=== PATIENT | female | born 1965 | race Caucasian/White ===

== ENCOUNTER 2019-03-02 12:10 | Outpatient (CLI) | payer MEDICAID ==
--- NOTE | 2019-03-04 03:56 | XRAY Report ---
Reason: ACUTE PAIN OF RIGHT SHOULDER Procedure Date: 03/02/2019 Accession Number: [id number] / [id number] Procedure: XR - Cervical Spine 2 View CPT Code: FULL RESULT: EXAM: CERVICAL SPINE RADIOGRAPHY EXAM DATE: 03/02/2019 12:28 PM. CLINICAL HISTORY: ACUTE PAIN OF RIGHT SHOULDER. COMPARISONS: None. TECHNIQUE: 3 views. FINDINGS: Alignment: Unremarkable. Bones: The cervical vertebral bodies and posterior elements are visualized from the skull base through C7-T1. No fractures or bone lesions. Disks: Degenerative disk disease at all levels. Facets: Degenerative joint disease at multiple levels. Soft Tissues: No prevertebral soft tissue swelling. The visualized lung apices appear clear. IMPRESSION: 1. Multilevel degenerative disk disease and degenerative joint disease. 2. No acute abnormality seen. RADIA
== END 2019-03-02 12:11 | disposition home or self-care (01) ==
LOC: DI 12:10
PROVIDERS: ATTEND Family Medicine
DX: M50.31 Other cervical disc degeneration, high cervical region (principal); M47.812 Spondylosis without myelopathy or radiculopathy, cervical region
CPT/HCPCS: 72040

== ENCOUNTER 2020-08-16 13:29 | Emergency (ER) | payer MEDICAID, OTHER ==
[2020-08-16 13:39] VITALS: BP 118/73
--- NOTE | 2020-08-16 14:38 | ED Physician Documentation ---
PD HPI SKIN - Stated complaint Stated Complaint: HIVES - Chief complaint Chief Complaint: Allergic Rx - History obtained from History obtained from: Patient - History of Present Illness Timing - onset: Last night Timing - duration: Hours Timing - details: Gradual onset, Still present Location: Bodywide Quality / character: Itchy, Burning, Raised, Swelling. No: Vesicular, Crusted, Draining Improved by: Other (clariton) Associated symptoms: No: Fever, Myalgias, Joint pain, Headache, Facial swelling, Dyspnea, Abd pain, N/V/D, Urinary sx Contributing factors: Exposed to food (ate a pizza from [employer] with unfamiliar ingredients.), Other (new dryer sheets X 2 wks.) Similar symptoms before: Has not had sx before Recently seen: Not recently seen - Additional information Additional information: Previously well 54-year-old female with a prior history of traumatic brain injury has developed hives last night and she is uncertain where these came from she has never had this happen to her previously and she knows they are all over her body there uncomfortable itching and burning and migraine. She does not find any area of her body that is spared with the exception of her face and this is only around her mouth and lips. She denies any difficulty breathing swelling of her tongue or recent illness. She has 2 things that she is concerned may have been the precipitant of this. She did have a pizza from [employer] last night with unfamiliar ingredients and she has replaced her dryer sheets with a new brand 2 weeks ago. She is not wearing any clothing that was not dried with the dryer sheets. She does not have any areas that appear spared. Review of Systems Constitutional: reports: Sweats. denies: Fever, Chills, Myalgias Eyes: denies: Decreased vision Ears: denies: Ear pain Nose: denies: Congestion Throat: denies: Sore throat Cardiac: denies: Chest pain / pressure, Palpitations Respiratory: denies: Dyspnea, Cough GI: denies: Abdominal Pain, Nausea, Vomiting : denies: Dysuria, Frequency Skin: reports: Rash Musculoskeletal: denies: Neck pain, Back pain, Extremity pain Neurologic: denies: Generalized weakness, Focal weakness, Numbness PD PAST MEDICAL HISTORY - Past Medical History Past Medical History: Yes Cardiovascular: Hypertension Endocrine/Autoimmune: Type 2 diabetes - Past Surgical History Past Surgical History: Yes Ortho: Carpal Tunnel surgery - Present Medications Home Medications: Ambulatory Orders Medication Instructions Recorded Confirmed Ibuprofen [Motrin] 400 mg PO Q6H PRN #30 tablet 09/01/15 Lidocaine Patch 5% [Lidoderm Patch] 1 each TOP DAILY PRN #10 patch 09/01/15 Oxycodone HCl/Acetaminophen 1 each PO QPM #10 tablet 09/01/15 [Percocet 5-325 mg Tablet] PARoxetine HCl [Paxil] 09/01/15 lisinopriL [Lisinopril] 09/01/15 metFORMIN [Glucophage] 09/01/15 predniSONE [Deltasone] 40 mg PO DAILY 5 Days #10 tablet 08/16/20 - Allergies Allergies/Adverse Reactions: Allergies Allergy/AdvReac Type Severity Reaction Status Date / Time Penicillins Allergy Unknown Verified 08/16/20 13:34 - Social History Does the pt smoke?: No Smoking Status: Never smoker Does the pt drink ETOH?: No Does the pt have substance abuse?: No - Immunizations Immunizations are current?: Yes - POLST Patient has POLST: No PD ED PE NORMAL - Vitals Vital signs reviewed: Yes (normal ) - General General: Alert and oriented X 3, Well developed/nourished, Other (The patient appears uncomfortable figgity) - HEENT HEENT: Atraumatic, PERRL, EOMI, Moist mucous membranes, Pharynx benign - Neck Neck: Supple, no meningeal sign, No bony TTP - Cardiac Cardiac: RRR, No murmur - Respiratory Respiratory: No respiratory distress, Clear bilaterally - Abdomen Abdomen: Soft, Non tender - Back Back: No CVA TTP, No spinal TTP - Derm Derm: Normal color, Warm and dry, Other (There are urticaria body wide some areas grossly affected some areas not so affected) - Extremities Extremities: No deformity, No edema - Neuro Neuro: Alert and oriented X 3, manager r d 2-12 intact, No motor deficit, No sensory deficit, Normal speech Eye Opening: Spontaneous Motor: Obeys Commands Verbal: Oriented GCS Score: 15 - Psych Psych: Normal mood, Normal affect Results - Vitals Vitals: Vital Signs - 24 hr 08/16/20 13:35 Temperature 36.5 C Heart Rate 83 Respiratory 16 Rate Blood Pressure 118/73 O2 Saturation 96 Oxygen O2 Source Room air PD MEDICAL DECISION MAKING - ED course Complexity details: considered differential, d/w patient ED course: 54-year-old female with acute urticaria is uncertain of the specific precipitant. She is administered dexamethasone 10 mg orally we will place her on a short course of prednisone and I have asked her to take Benadryl 25 to 50 mg every 6 hours for the next 2 days. Departure - Departure Disposition: 01 Home, Self Care Clinical Impression: Urticaria Condition: Stable Instructions: ED Urticaria Follow-Up: JENNIFER HSIEH [Primary Care Provider] - Prescriptions: predniSONE [Deltasone] 40 mg PO DAILY 5 Days #10 tablet
[2020-08-16] MEDS ORDERED: DEXAMETHASONE 10 MG/ML VIAL PO STA (14:40)
[2020-08-16] MEDS ORDERED: CHERRY SYRUP 10 ML UDC PO ONE (14:40)
== END 2020-08-16 14:52 | disposition home or self-care (01) ==
LOC: ED 13:29
DX: L50.9 Urticaria, unspecified (principal); I10 Essential (primary) hypertension; E11.9 Type 2 diabetes mellitus without complications; Z79.84 Long term (current) use of oral hypoglycemic drugs; Z87.820 Personal history of traumatic brain injury
CPT/HCPCS: 99282; 99284; A9270

== ENCOUNTER 2020-10-14 12:13 | Emergency (ER) | payer OTHER ==
[2020-10-14 12:31] VITALS: BP 118/75
--- NOTE | 2020-10-14 13:55 | ED Physician Documentation ---
History of Present Illness - Stated complaint Stated Complaint: R LEG SWELLING/PX - Chief complaint Chief Complaint: Ext Problem - History obtained from History obtained from: Patient - History of Present Illness Pain level max: 7 Pain level now: 3 - Additonal information Additional information: Patient is a 54-year-old female who states that for the past several days she has been having pain in the right knee, right calf and right anterior tibia. Worse with palpation and walking. Better with rest. Denies any injury. She states her leg is been swelling as well. No recent surgeries. Not on hormone replacement. No history of blood clots. No recent travel. No numbness or tingling. No skin changes. No fevers. No chills. Review of Systems Ten Systems: 10 systems reviewed and negative Constitutional: denies: Fever, Chills Ears: denies: Ear pain Nose: denies: Rhinorrhea / runny nose, Congestion GI: denies: Vomiting, Diarrhea Skin: denies: Rash Musculoskeletal: denies: Neck pain, Back pain Neurologic: denies: Headache PD PAST MEDICAL HISTORY - Past Medical History Cardiovascular: Hypertension Endocrine/Autoimmune: Type 2 diabetes - Past Surgical History Past Surgical History: Yes Ortho: Carpal Tunnel surgery - Present Medications Home Medications: Ambulatory Orders Medication Instructions Recorded Confirmed Ibuprofen [Motrin] 400 mg PO Q6H PRN #30 tablet 09/01/15 Lidocaine Patch 5% [Lidoderm Patch] 1 each TOP DAILY PRN #10 patch 09/01/15 Oxycodone HCl/Acetaminophen 1 each PO QPM #10 tablet 09/01/15 [Percocet 5-325 mg Tablet] PARoxetine HCl [Paxil] 09/01/15 lisinopriL [Lisinopril] 09/01/15 metFORMIN [Glucophage] 09/01/15 predniSONE [Deltasone] 40 mg PO DAILY 5 Days #10 tablet 08/16/20 HYDROcod/ACETAM 5/325 [[place] 5/325] 1 - 2 ea PO Q6H PRN #14 tablet 10/14/20 - Allergies Allergies/Adverse Reactions: Allergies Allergy/AdvReac Type Severity Reaction Status Date / Time Penicillins Allergy Unknown Verified 10/14/20 12:31 - Social History Does the pt smoke?: No Smoking Status: Never smoker Does the pt drink ETOH?: No Does the pt have substance abuse?: No - Immunizations Immunizations are current?: Yes - POLST Patient has POLST: No PD ED PE NORMAL - Vitals Vital signs reviewed: Yes - General General: Alert and oriented X 3, No acute distress, Well developed/nourished - HEENT HEENT: PERRL, Moist mucous membranes - Neck Neck: Supple, no meningeal sign - Cardiac Cardiac: RRR, Strong equal pulses - Respiratory Respiratory: No respiratory distress, Clear bilaterally - Derm Derm: Warm and dry - Extremities Extremities: Other (Trace edema to the right lower extremity. Tenderness along the posterior calf. There is also tenderness on the medial aspect of the tibial plateau. No joint effusion. ACL, MCL PCL, LCL are intact. She is also mildly tender over the anterior tibial spine. No deformity. Neurovascularly intact) - Neuro Neuro: Alert and oriented X 3 - Psych Psych: Normal mood, Normal affect Results - Vitals Vitals: Vital Signs - 24 hr 10/14/20 12:26 Temperature 36.8 C Heart Rate 73 Respiratory 16 Rate Blood Pressure 118/75 O2 Saturation 97 Oxygen O2 Source Room air - Rads (name of study) R knee xray Radiology: Prelim report reviewed, EMP read contemporaneously, See rad report Duplex US RLE Radiology: Prelim report reviewed, EMP read contemporaneously, See rad report R tib fib xray Radiology: Prelim report reviewed, EMP read contemporaneously, See rad report PD MEDICAL DECISION MAKING - ED course Complexity details: reviewed results, re-evaluated patient, considered differential, d/w patient ED course: 54-year-old female with right knee and right leg pain. Possible meniscus injury? She is tender along the medial tibial plateau. Does have some fluid in the proximal and medial right calf. We will prescribe pain medications for home and have her follow-up with orthopedics for repeat evaluation and further care. No skin changes. No evidence of necrotizing fasciitis or other infection. Patient counseled regarding signs and symptoms for which I believe and urgent re-evaluation would be necessary. Patient with good understanding of and agreement to plan and is comfortable going home at this time This document was made in part using voice recognition software. While efforts are made to proofread this document, sound alike and grammatical errors may occur. R knee/tib fib: IMPRESSION: Right knee osteoarthritis. No acute fracture. No osseous lesion. If symptoms and/or clinical suspicion for pathology continue, further assessment with repeat plain films, or advanced imaging (e.g., CT, MRI, or bone scan) is recommended for further assessment. Small knee joint effusion. Duplex US: IMPRESSION: No sonographic evidence of DVT. Partially visualized nonspecific fluid collection is present present in the proximal and medial right calf measuring up to 7.1 cm. This may represent hematoma or seroma, among other less likely etiologies. Departure - Departure Disposition: 01 Home, Self Care Clinical Impression: Knee pain Qualifiers: Chronicity: acute Laterality: right Qualified Code(s): M25.561 - Pain in right knee Leg pain Qualifiers: Laterality: right Qualified Code(s): M79.604 - Pain in right leg Condition: Good Instructions: ED Meniscal Injury Knee Poss Follow-Up: JENNIFER HSIEH [Primary Care Provider] - [facility] [Provider Group] - Within 1 week Prescriptions: HYDROcod/ACETAM 5/325 [[place] 5/325] 1 - 2 ea PO Q6H PRN #14 tablet PRN Reason: Pain Comments: The cause of your symptoms is unclear today. Please follow-up with orthopedics for further care. Return if you worsen. Continue to use your cane to help you walk at home. The cane should go in your left hand to help take pressure off of the right knee. Do not drink alcohol or drive while on narcotic pain medicine. Note that many narcotic pain relievers also contain tylenol/acetaminophen. Please ensure that your total dose of acetaminophen from all sources does not exceed 3 grams (3000mg) per day. You may constipated on this medication, take a stool softener such as "Colace" twice a day while you are on it. Also recommend a gfxv-lql-lyhudjj laxative such as senna or MiraLAX any day that you do not have a bowel movement. If you received narcotic pain medication in the emergency department, do not drive or operate machinery for the next 24 hours. Discharge Date/Time: 10/14/20 16:32
--- NOTE | 2020-10-14 14:38 | XRAY Report ---
PROCEDURE: Knee 4 View RT INDICATIONS: R knee pain, no known injury TECHNIQUE: 4 views of the right leg and knee(s) were acquired. COMPARISON: None. FINDINGS: Bones: No fractures or dislocations. No suspicious bony lesions. Mild periarticular osteophyte for mation at the right knee joint. Soft tissues: Small right knee joint effusion. No suspicious soft tissue calcifications. IMPRESSION: Right knee osteoarthritis. No acute fracture. No osseous lesion. If symptoms and/or clin ical suspicion for pathology continue, further assessment with repeat plain films, or advanced imagin g (e.g., CT, MRI, or bone scan) is recommended for further assessment. Small knee joint effusion. Reviewed by: Janneth Luna MD on 10/14/2020 2:36 PM PDT Approved by: Janneth Luna MD on 10/14/2020 2:36 PM PDT Station ID: [id number]
--- NOTE | 2020-10-14 14:43 | Ultrasound Report ---
PROCEDURE: Duplex Ext Veins Right INDICATIONS: R LE swelling, calf pain TECHNIQUE: Real-time imaging, as well as color and pulse Doppler interrogation, were performed of the lower extr emity deep veins from the inguinal ligament to the popliteal fossa. COMPARISON: None. FINDINGS: The deep veins are normally compressible, and free of intraluminal thrombus. Color and pu lse Doppler demonstrate normal phasic intraluminal flow. There is normal augmentation response to di stal compression maneuver. Partially visualized nonspecific fluid collection in the proximal and med ial right calf measuring 7.1 x 2.4 x 2.2 cm. IMPRESSION: No sonographic evidence of DVT. Partially visualized nonspecific fluid collection is pre sent present in the proximal and medial right calf measuring up to 7.1 cm. This may represent hematom a or seroma, among other less likely etiologies. Reviewed by: Wong Grider MD on 10/14/2020 2:41 PM PDT Approved by: Wong Grider MD on 10/14/2020 2:41 PM PDT Station ID: [id number]
== END 2020-10-14 16:32 | disposition home or self-care (01) ==
LOC: ED 12:13
DX: M25.561 Pain in right knee (principal); M17.11 Unilateral primary osteoarthritis, right knee; M79.661 Pain in right lower leg; R60.0 Localized edema; I10 Essential (primary) hypertension; E11.9 Type 2 diabetes mellitus without complications; Z79.84 Long term (current) use of oral hypoglycemic drugs
CPT/HCPCS: 99284

== ENCOUNTER 2021-01-13 15:34 | Emergency (ER) | payer MEDICAID, OTHER ==
[2021-01-13] MEDS ORDERED: predniSONE 20 MG TABLET PO STA (16:09)
--- NOTE | 2021-01-13 16:11 | ED Physician Documentation ---
History of Present Illness - Stated complaint Stated Complaint: BUG BITE/PX - Chief complaint Chief Complaint: Allergic Rx - Additonal information Additional information: 55-year-old female presents emergency department for evaluation of a bee sting on her right medial thigh. Had one about 1 week ago. 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 Patient states that she removed the stinger from the team today but is here because of increasing pain. Review of Systems Constitutional: denies: Fever, Chills Eyes: reports: Reviewed and negative Ears: reports: Reviewed and negative Throat: reports: Reviewed and negative Cardiac: denies: Chest pain / pressure, Palpitations, Pedal edema, Calf pain Respiratory: denies: Dyspnea GI: reports: Reviewed and negative : reports: Reviewed and negative Skin: reports: Reviewed and negative PD PAST MEDICAL HISTORY - Past Medical History Cardiovascular: Hypertension Endocrine/Autoimmune: Type 2 diabetes - Past Surgical History Past Surgical History: Yes Ortho: Carpal Tunnel surgery - Present Medications Home Medications: Ambulatory Orders Medication Instructions Recorded Confirmed Ibuprofen [Motrin] 400 mg PO Q6H PRN #30 tablet 09/01/15 Lidocaine Patch 5% [Lidoderm Patch] 1 each TOP DAILY PRN #10 patch 09/01/15 Oxycodone HCl/Acetaminophen 1 each PO QPM #10 tablet 09/01/15 [Percocet 5-325 mg Tablet] PARoxetine HCl [Paxil] 09/01/15 lisinopriL [Lisinopril] 09/01/15 metFORMIN [Glucophage] 09/01/15 predniSONE [Deltasone] 40 mg PO DAILY 5 Days #10 tablet 08/16/20 HYDROcod/ACETAM 5/325 [[place] 5/325] 1 - 2 ea PO Q6H PRN #14 tablet 10/14/20 predniSONE [Deltasone] 40 mg PO DAILY 3 Days #6 tablet 01/13/21 - Allergies Allergies/Adverse Reactions: Allergies Allergy/AdvReac Type Severity Reaction Status Date / Time bee venom protein (honey bee) Allergy Hives Verified 01/13/21 15:39 Penicillins Allergy Unknown Verified 01/13/21 15:38 shellfish derived Allergy Edema Verified 01/13/21 15:42 - Social History Does the pt smoke?: No Smoking Status: Never smoker Does the pt drink ETOH?: No Does the pt have substance abuse?: No - Immunizations Immunizations are current?: Yes - POLST Patient has POLST: No PD ED PE EXPANDED - General General: Alert, No acute distress, Well developed/nourished - Cardiac Cardiac: Regular Rate, Radial strong equal, Pedal strong equal, Cap refill < 2 sec - Respiratory Respiratory: Clear to ausultation jennifer. No: Distress, Labored - Abdomen Abdomen: Normal Bowel sounds. No: Tender to palpation - Back Back: Normal exam - Derm Derm: Normal color, Warm and dry, Other (Bee sting right medial thigh with some mild amount of surrounding erythema but no induration. Blanchable.). No: Rash - Extremities Extremities: Normal. No: Deformity, Tenderness - Neuro Neuro: Alert and Oriented X 3, CNII-XII intact Results - Vitals Vitals: Vital Signs - 24 hr 01/13/21 01/13/21 15:39 16:08 Temperature 37.1 C Heart Rate 84 Respiratory 20 18 Rate Blood Pressure 129/82 H O2 Saturation 97 Oxygen O2 Source Room air PD MEDICAL DECISION MAKING - ED course Complexity details: considered differential, d/w patient ED course: 55-year-old female presents emergency department for evaluation of the staying in the right medial thigh occurred just prior to arrival. Reported had similar in the same area 1 week ago. She does report history of anaphylaxis but did not use her EpiPen. At present she has no chest pain or shortness of air no tongue or lip swelling. She is here mostly because the sting hurts. Patient will be given dose of Pepcid, Benadryl and prednisone. Will be discharged with a 3-day course of prednisone. Discussed the usual indications and use of epinephrine at home though none is administered or indicated at the time of this ED visit. Emergent return precautions discussed. Departure - Departure Disposition: 01 Home, Self Care Clinical Impression: Bee sting reaction Qualifiers: Encounter type: initial encounter Injury intent: accidental or unintentional Qualified Code(s): T63.441A - Toxic effect of venom of bees, accidental (unintentional), initial encounter Condition: Stable Record reviewed to determine appropriate education?: Yes Instructions: ED Sting Bite Insect Infec Follow-Up: JENNIFER HSIEH [Primary Care Provider] - Prescriptions: predniSONE [Deltasone] 40 mg PO DAILY 3 Days #6 tablet Comments: Alona the redness that you have around your bee sting is very typical of a bee envenomation. I recommend a cool compress over it for 10 minutes 3 times a day. Please fill the prescription for the prednisone and take daily starting tomorrow. Your first dose was given today in the ER. I also recommend that you take 25 mg of Benadryl 2-3 times a day. If at any point you feel that you are having a systemic reaction to your bee sting such as chest pain, shortness of air tongue or lip swelling then please use your epinephrine pen at home.
[2021-01-13 16:27] VITALS: BP 131/89
== END 2021-01-13 16:26 | disposition home or self-care (01) ==
LOC: ED 15:34
DX: T63.441A Toxic effect of venom of bees, accidental (unintentional), initial encounter (principal); M79.651 Pain in right thigh; E11.9 Type 2 diabetes mellitus without complications; Z79.84 Long term (current) use of oral hypoglycemic drugs; I10 Essential (primary) hypertension
CPT/HCPCS: 99282; 99283; J7512

== ENCOUNTER 2021-02-13 12:12 | Emergency (ER) | payer MEDICAID ==
[2021-02-13 12:19] VITALS: BP 140/84
--- NOTE | 2021-02-13 13:19 | ED Physician Documentation ---
History of Present Illness - Stated complaint Stated Complaint: MOUTH PX - Chief complaint Chief Complaint: Heent - Additonal information Additional information: 55-year-old female presents emergency department for evaluation of pain in her l eft upper jaw at the site of the recent dental extraction that occurred 3 days ago. She reports that the tooth was grossly infected but has not been started on antibiotics. Since tooth removal she has had progressive pain and some mild facial swelling. She reports fever of 101 yesterday evening. She was unable to see the dentist in follow-up thus she presents here. She is taken ibuprofen with minimal relief of pain. She is also gargling with warm salt water. She has no trismus, dysphonia or difficulty swallowing. Review of Systems Constitutional: reports: Fever Eyes: reports: Reviewed and negative Ears: reports: Reviewed and negative Nose: reports: Reviewed and negative Throat: reports: Dental pain / toothache Cardiac: reports: Reviewed and negative Respiratory: reports: Reviewed and negative GI: reports: Reviewed and negative : reports: Reviewed and negative Skin: reports: Reviewed and negative PD PAST MEDICAL HISTORY - Past Medical History Cardiovascular: Hypertension Endocrine/Autoimmune: Type 2 diabetes - Past Surgical History Past Surgical History: Yes Ortho: Carpal Tunnel surgery - Present Medications Home Medications: Ambulatory Orders Medication Instructions Recorded Confirmed Ibuprofen [Motrin] 400 mg PO Q6H PRN #30 tablet 09/01/15 Lidocaine Patch 5% [Lidoderm Patch] 1 each TOP DAILY PRN #10 patch 09/01/15 Oxycodone HCl/Acetaminophen 1 each PO QPM #10 tablet 09/01/15 [Percocet 5-325 mg Tablet] PARoxetine HCl [Paxil] 09/01/15 lisinopriL [Lisinopril] 09/01/15 metFORMIN [Glucophage] 09/01/15 predniSONE [Deltasone] 40 mg PO DAILY 5 Days #10 tablet 08/16/20 HYDROcod/ACETAM 5/325 [[place] 5/325] 1 - 2 ea PO Q6H PRN #14 tablet 10/14/20 predniSONE [Deltasone] 40 mg PO DAILY 3 Days #6 tablet 01/13/21 Clindamycin [Cleocin] 300 mg PO TID 7 Days #42 cap 02/13/21 - Allergies Allergies/Adverse Reactions: Allergies Allergy/AdvReac Type Severity Reaction Status Date / Time bee venom protein (honey bee) Allergy Hives Verified 02/13/21 12:16 Penicillins Allergy Unknown Verified 02/13/21 12:16 shellfish derived Allergy Edema Verified 02/13/21 12:16 - Social History Does the pt smoke?: No Smoking Status: Never smoker Does the pt drink ETOH?: No Does the pt have substance abuse?: No - Immunizations Immunizations are current?: Yes - POLST Patient has POLST: No PD ED PE EXPANDED - General General: Alert, No acute distress - HEENT HEENT: No: Dentition normal (Extraction site for tooth #14 is mildly erythematous without drainage. Patient has some mild facial swelling and erythema of the left cheek. No trismus. Normal phonation. Uvula is midline with no soft palate asymmetry or swelling.) - Neck Neck: Supple w/out meningeal sx. No: Adenopathy - Cardiac Cardiac: Regular Rate, Radial strong equal, Pedal strong equal, Cap refill < 2 sec - Respiratory Respiratory: Clear to ausultation jennifer. No: Distress, Labored Results - Vitals Vitals: Vital Signs - 24 hr 02/13/21 12:16 Temperature 36.5 C Heart Rate 86 Respiratory 16 Rate Blood Pressure 140/84 H O2 Saturation 98 Oxygen O2 Source Room air PD MEDICAL DECISION MAKING - ED course Complexity details: considered differential, d/w patient ED course: 55-year-old female presents emergency department for evaluation of worsening pain and now facial swelling at the site of recent tooth extraction. On exam the extraction site does show some mild erythema without drainage. However patient is reporting fevers at home of 101. Patient will be started on a short course of clindamycin (see pcn allergy). She is scheduled to follow-up with her dentist next week. Discussed emergent return precautions which would include worsening facial swelling, trismus fevers or inability to tolerate oral secretions. Departure - Departure Disposition: 01 Home, Self Care Clinical Impression: Dental infection Condition: Stable Record reviewed to determine appropriate education?: Yes Prescriptions: Clindamycin [Cleocin] 300 mg PO TID 7 Days #42 cap Comments: Alona you may have an early infection at the site of where the tooth was extracted. Please continue the warm salt water gargles 3 times a day. I am prescribing clindamycin this is an antibiotic that you are to take 3 times a day for the next week. With this antibiotic I would expect reduced pain, swelling and redness over the next 72 hours. If at any point you feel that your symptoms are worsening, you have increased facial swelling or fevers or develop inability to swallow normally then please return immediately to the ER for a second evaluation. [facility] prescription [facility] been electronically [facility] to [facility] in [place].
== END 2021-02-13 13:28 | disposition home or self-care (01) ==
LOC: ED 12:12
DX: K04.7 Periapical abscess without sinus (principal); Z98.818 Other dental procedure status; I10 Essential (primary) hypertension; E11.9 Type 2 diabetes mellitus without complications; Z79.84 Long term (current) use of oral hypoglycemic drugs
CPT/HCPCS: 99281; 99284

== ENCOUNTER 2021-09-19 10:57 | Emergency (ER) | payer MEDICARE, MEDICAID ==
--- NOTE | 2021-09-19 11:53 | ED Physician Documentation ---
History of Present Illness - Stated complaint Stated Complaint: L HIP PX, RIGHT ANKLE PX - Chief complaint Chief Complaint: Ext Problem PD PAST MEDICAL HISTORY - Past Medical History Cardiovascular: Hypertension Endocrine/Autoimmune: Type 2 diabetes - Past Surgical History Past Surgical History: Yes Ortho: Carpal Tunnel surgery - Present Medications Home Medications: Ambulatory Orders Medication Instructions Recorded Confirmed Ibuprofen [Motrin] 400 mg PO Q6H PRN #30 tablet 09/01/15 Lidocaine Patch 5% [Lidoderm Patch] 1 each TOP DAILY PRN #10 patch 09/01/15 Oxycodone HCl/Acetaminophen 1 each PO QPM #10 tablet 09/01/15 [Percocet 5-325 mg Tablet] PARoxetine HCl [Paxil] 09/01/15 lisinopriL [Lisinopril] 09/01/15 metFORMIN [Glucophage] 09/01/15 predniSONE [Deltasone] 40 mg PO DAILY 5 Days #10 tablet 08/16/20 HYDROcod/ACETAM 5/325 [[place] 5/325] 1 - 2 ea PO Q6H PRN #14 tablet 10/14/20 predniSONE [Deltasone] 40 mg PO DAILY 3 Days #6 tablet 01/13/21 Clindamycin [Cleocin] 300 mg PO TID 7 Days #42 cap 02/13/21 - Allergies Allergies/Adverse Reactions: Allergies Allergy/AdvReac Type Severity Reaction Status Date / Time bee venom protein (honey bee) Allergy Hives Verified 09/19/21 11:06 Penicillins Allergy Unknown Verified 09/19/21 11:06 shellfish derived Allergy Edema Verified 09/19/21 11:06 - Social History Does the pt smoke?: No Smoking Status: Never smoker Does the pt drink ETOH?: No Does the pt have substance abuse?: No - Immunizations Immunizations are current?: Yes - POLST Patient has POLST: No Results - Vitals Vitals: Vital Signs - 24 hr 09/19/21 11:07 Temperature 37.2 C Heart Rate 90 Respiratory 18 Rate Blood Pressure 128/72 O2 Saturation 96 Oxygen O2 Source Room air
--- NOTE | 2021-09-19 11:56 | ED Physician Documentation ---
History of Present Illness - Stated complaint Stated Complaint: L HIP PX, RIGHT ANKLE PX - Chief complaint Chief Complaint: Ext Problem - Additonal information Additional information: 55-year-old female presents to the emergency department via EMS for evaluation of 2 years right anterior lower leg/ankle pain. States it began after a fall. She has a hard lump on the lower leg that she thinks is her bone. Over the last few weeks she has begun to have some numbness on the medial side of her foot. She also states that on Tuesday she tripped over her cat landing on her left hip. She continues to have pain in this area. She also reports that for a "hot minute" she has begun to have painful urination. No fevers, flank pain vomiting or diarrhea. States that she typically takes ibuprofen or meloxicam but none of that is working for her pain. Would like something stronger. Review of Systems Constitutional: denies: Fever, Chills Cardiac: reports: Reviewed and negative Respiratory: reports: Reviewed and negative GI: denies: Abdominal Pain, Nausea, Vomiting : reports: Dysuria Musculoskeletal: reports: Extremity pain, Joint pain PD PAST MEDICAL HISTORY - Past Medical History Cardiovascular: Hypertension Endocrine/Autoimmune: Type 2 diabetes - Past Surgical History Past Surgical History: Yes Ortho: Carpal Tunnel surgery - Present Medications Home Medications: Ambulatory Orders Medication Instructions Recorded Confirmed Ibuprofen [Motrin] 400 mg PO Q6H PRN #30 tablet 09/01/15 Lidocaine Patch 5% [Lidoderm Patch] 1 each TOP DAILY PRN #10 patch 09/01/15 Oxycodone HCl/Acetaminophen 1 each PO QPM #10 tablet 09/01/15 [Percocet 5-325 mg Tablet] PARoxetine HCl [Paxil] 09/01/15 lisinopriL [Lisinopril] 09/01/15 metFORMIN [Glucophage] 09/01/15 predniSONE [Deltasone] 40 mg PO DAILY 5 Days #10 tablet 08/16/20 HYDROcod/ACETAM 5/325 [[place] 5/325] 1 - 2 ea PO Q6H PRN #14 tablet 10/14/20 predniSONE [Deltasone] 40 mg PO DAILY 3 Days #6 tablet 01/13/21 Clindamycin [Cleocin] 300 mg PO TID 7 Days #42 cap 02/13/21 - Allergies Allergies/Adverse Reactions: Allergies Allergy/AdvReac Type Severity Reaction Status Date / Time bee venom protein (honey bee) Allergy Hives Verified 09/19/21 11:06 Penicillins Allergy Unknown Verified 09/19/21 11:06 shellfish derived Allergy Edema Verified 09/19/21 11:06 - Social History Does the pt smoke?: No Smoking Status: Never smoker Does the pt drink ETOH?: No Does the pt have substance abuse?: No - Immunizations Immunizations are current?: Yes - POLST Patient has POLST: No PD ED PE EXPANDED - General General: Alert, No acute distress, Other (obese) - Cardiac Cardiac: Regular Rate, Radial strong equal, Pedal strong equal, Cap refill < 2 sec - Respiratory Respiratory: Clear to ausultation jennifer. No: Distress, Labored - Abdomen Abdomen: Normal Bowel sounds, Tender to palpation (Mild suprapubic tenderness no guarding or rebound. No flank pain or CVA tenderness) - Extremities Extremities: Left hip (Full range of motion both actively and passively. No instability of the hip no malrotation or shortening of the leg. Mildly antalgic gait with a cane.), Right ankle (Full range of motion of the ankle. Normal dorsi and plantar flexion. No tenderness at the lateral or medial malleolus. No pain at the base of the fifth metatarsal. There is some mild tenderness about 3 cm above the medial malleoli are area without swelling ecchymosis, deformity noted.) Results - Vitals Vitals: Vital Signs - 24 hr 09/19/21 11:07 Temperature 37.2 C Heart Rate 90 Respiratory 18 Rate Blood Pressure 128/72 O2 Saturation 96 Oxygen O2 Source Room air - Labs Labs: Laboratory Tests 09/19/21 12:22 Urine Color YELLOW Urine Clarity CLEAR Urine pH 6.0 Ur Specific [place] 1.025 Urine Protein NEGATIVE Urine Glucose (UA) NEGATIVE Urine Ketones NEGATIVE Urine Occult Blood NEGATIVE Urine Nitrite NEGATIVE Urine Bilirubin NEGATIVE Urine Urobilinogen 0.2 (NORMAL) Ur Leukocyte Esterase TRACE H Urine RBC 0-5 Urine WBC 0-3 Ur Squamous Epith Cells MOD Squamous H Urine Bacteria Few Ur Microscopic Review INDICATED Urine Culture Comments NOT INDICATED - Rads (name of study) right ankle Radiology: Final report received (Osteoarthritis. No fracture dislocation) left hip/pelvis Radiology: Final report received (Osteoarthritis. No fracture or dislocation) PD MEDICAL DECISION MAKING - ED course Complexity details: reviewed results, re-evaluated patient, considered differential, d/w patient ED course: 55-year-old female presents to the emergency department for evaluation of 2 years right lower leg/ankle pain after a fall. She points to a spot on her lower leg that she feels is a hard bump that she is convinced is a bone. This is a subjective finding only as it is not present on exam or x-ray imaging. The x-ray does confirm arthritis however. She is also reporting pain in her left hip after a fall few weeks ago. Again x-ray shows arthritis but no fracture. Given normal range of motion and ability to bear full weight my suspicion for an occult fracture is low and I deferred advanced imaging. Patient also reports some mild dysuria but urine is not consistent with infection. Patient states that she has had a hard time over the last 6 months maintaining control of her bladder. She often has urgency and bladder leakage when she stands up. She has begun to wear diapers. I have encouraged her to follow closely with primary care. However she feels her primary care provider is too far away so she comes to the emergency department. We discussed that there is a limitation to what emergency department care can provide and we are not able to provide the referral to specialist that she may need such as orthopedics or pelvic floor me dodson. Emergent return precautions were discussed for emergent worrisome conditions Departure - Departure Disposition: 01 Home, Self Care Clinical Impression: Arthritis of left hip Right ankle pain Qualifiers: Chronicity: chronic Qualified Code(s): M25.571 - Pain in right ankle and joints of right foot; G89.29 - Other chronic pain Condition: Stable Record reviewed to determine appropriate education?: Yes Comments: Alona your urine today does not show signs of infection. I encourage you to follow closely with a primary care doctor for referral to a pelvic floor covering printer assistant. There are certain exercises and evaluations that can help determine the cause of your bladder leakage. The x-ray of your ankle and hip do not show any broken bones or fractures. You do have arthritis in both of these joints which I think is the cause of the majority of your pain. Again following with your primary doctor is important. Longer-term pain management options can be discussed as well as if referral to specialist such as orthopedics would be indicated at this time.
--- NOTE | 2021-09-19 12:39 | XRAY Report ---
PROCEDURE: Ankle 3 View RT INDICATIONS: fall 3 weeks ago with pain TECHNIQUE: 3 views of the ankle were acquired. COMPARISON: None FINDINGS: Bones: Mild periarticular osteophyte formation at the tibiotalar joints. No fractures or dislocation s. Ankle mortise is normally aligned. No suspicious bony lesions. Soft tissues: No tibiotalar joint effusion. Achilles tendon appears normal. IMPRESSION: Osteoarthritis. No acute fracture. No osseous lesion. If symptoms and/or clinical suspic ion for pathology continue, further assessment with repeat plain films, or advanced imaging (e.g., CT , MRI, or bone scan) is recommended for further assessment. Reviewed by: Janneth Luna MD on 09/19/2021 12:37 PM PDT Approved by: Janneth Luna MD on 09/19/2021 12:37 PM PDT Station ID: [id number]
--- NOTE | 2021-09-19 12:39 | XRAY Report ---
PROCEDURE: Hip w/Pelvis 2-3V LT INDICATIONS: fall 3 weeks ago; pain TECHNIQUE: AP pelvis with lateral view(s) of the left hip(s). COMPARISON: None. FINDINGS: Bones: No fractures or dislocations. Pelvic ring appears intact. No suspicious bony lesions. Mild joint space narrowing and periarticular osteophyte formation at the bilateral hip joints. Soft tissues: The visualized bowel gas pattern is normal. No suspicious soft tissue calcifications. IMPRESSION: Osteoarthritis. No acute fracture. No osseous lesion. If symptoms and/or clinical suspic ion for pathology continue, further assessment with repeat plain films, or advanced imaging (e.g., CT , MRI, or bone scan) is recommended for further assessment. Reviewed by: Janneth Luna MD on 09/19/2021 12:38 PM PDT Approved by: Janneth Luna MD on 09/19/2021 12:38 PM PDT Station ID: [id number]
[2021-09-19 12:41] LABS: BILIRUBIN,URINE NEGATIVE (NEGATIVE); GLUCOSE, URINE (UA) NEGATIVE (NEGATIVE); KETONES,URINE (UA) NEGATIVE (NEGATIVE); LEUKOCYTE ESTERASE, URINE TRACE (NEGATIVE); NITRITE,URINE NEGATIVE (NEGATIVE); OCCULT BLOOD,URINE NEGATIVE (NEGATIVE); PROTEIN,URINE NEGATIVE (NEGATIVE); UROBILINOGEN,URINE 0.2 (NORMAL) E.U./dL (NORMAL)
[2021-09-19 12:44] LABS: CLARITY,URINE CLEAR (CLEAR)
[2021-09-19 13:02] LABS: BACTERIA,URINE Few /HPF (None Seen); RBC,URINE 0-5 /HPF (0-5); SQUAMOUS EPITHELIAL CELL,UR MOD Squamous (<= Few); WBC,URINE 0-3 /HPF (0-5)
[2021-09-19 13:25] VITALS: BP 124/78
== END 2021-09-19 13:25 | disposition home or self-care (01) ==
LOC: SUPCPDRO 10:57 → ED 10:57
DX: M16.12 Unilateral primary osteoarthritis, left hip (principal); M25.571 Pain in right ankle and joints of right foot; G89.29 Other chronic pain; R30.0 Dysuria
CPT/HCPCS: 81001; 81003; 87086; 99284

== ENCOUNTER 2024-04-11 15:04 | Observation (INO) ==
--- NOTE | 2024-04-11 15:42 | ED Physician Documentation ---
PD HPI ABD PAIN Stated complaint Stated Complaint: RT SD PX Chief complaint Chief Complaint: Abd Pain History obtained from History obtained from: Patient History of Present Illness Timing - onset: How many days ago (6) Timing - duration: Days (6) Timing - details: Gradual onset and Waxing and waning (Patient started with right upper quadrant abdominal pain after Thanksgiving and has continued consistently with some undulation of severity.) Quality: Cramping, Aching and Pain Location: RUQ Improved by: Laying still; No Vomiting Worsened by: Eating, Moving and Palpation Associated symptoms: Nausea and Vomiting; No Fever, Hematemesis, Diarrhea, Melena or Dysuria Similar symptoms before: No diagnosis (Has had right upper quadrant abdominal pain with eating and certain foods over the last 2 to 3 months and now consistently the last 5 to 6 days with vomiting.) Recently seen: Not recently seen Meds/Allgy Home Medications Ambulatory Orders Medication Instructions Recorded Confirmed buspirone 10 mg tablet 10 mg PO BID 04/11/24 04/11/24 losartan 50 mg tablet 50 mg PO DAILY 04/11/24 04/11/24 topiramate 25 mg tablet mg 04/11/24 Allergies Allergies Allergy/AdvReac Type Severity Reaction Status Date / Time bee venom protein (honey bee) Allergy Hives Verified 04/11/24 15:20 Penicillins Allergy Unknown Verified 04/11/24 15:20 shellfish derived Allergy Edema Verified 04/11/24 15:20 [facility] Medical History Medical History (Updated 04/11/24 @ 17:33 by Tyler Gamez MD) History of hypertension Social History Social History Smoking Status: Never smoker Relationship: Do you feel safe in your home environment?: Yes Suffered physical, verbal, emotional, or financial abuse?: No History of Abuse: No POLST Patient has POLST: No Exam Constitutional normal general appearance, distress noted (She appears quite uncomfortable and holding the right upper abdomen. ) (severe) and average body habitus HENMT oral mucous membranes normal and oropharynx normal Eyes no scleral icterus Chest palpation of chest normal Respiratory breath sounds equal bilaterally and normal respiratory effort Cardiovascular normal heart rate noted, regular rhythm noted and no edema Gastrointestinal tender to palpation (RUQ) (Markedly tender to palpation with guarding in the area. Tender to percussion as well. Lower abdomen nontender without any referred.), nondistended and no pulsatile mass Genitourinary no CVA tenderness Psychiatry mental status grossly normal, oriented x3 and thought process normal Skin skin color normal, no rash and no lesions Results Vitals Vitals: Vital Signs - 24 hr 04/11/24 15:08 04/11/24 15:48 04/11/24 15:58 Temperature 36.3 C L Temperature Source Skin Pulse Rate 66 62 Respiratory Rate 15 16 Blood Pressure 123/79 103/65 O2 Saturation 97 100 O2 Source Room air Room air Pain Intensity 8 10 10 04/11/24 15:59 04/11/24 16:30 04/11/24 16:30 Temperature Temperature Source Pulse Rate Respiratory Rate Blood Pressure O2 Saturation O2 Source Pain Intensity 10 5 5 04/11/24 17:05 04/11/24 17:14 Temperature Temperature Source Pulse Rate 61 Respiratory Rate 18 Blood Pressure 116/76 O2 Saturation 94 O2 Source Room air Pain Intensity 9 6 Oxygen O2 Source Room air Labs Labs: Laboratory Tests 04/11/24 04/11/24 15:50 16:00 WBC 8.6 RBC 4.47 Hgb 13.6 Hct 39.4 MCV 88.1 MCH 30.4 MCHC 34.5 RDW 12.3 Plt Count 339 MPV 10.8 Neut # (Auto) 5.4 Lymph # (Auto) 2.2 [place] # (Auto) 0.6 Eos # (Auto) 0.3 Baso # (Auto) 0.1 Absolute Nucleated RBC 0.00 Nucleated RBC % 0.0 Sodium 138 Potassium 3.5 Chloride 98 L Carbon Dioxide 31 Anion Gap 9.0 BUN 12 Creatinine 1.0 Estimated GFR (MDRD) 57 L Glucose 93 Calcium 10.0 Magnesium 2.0 Total Bilirubin 0.6 AST 22 ALT 29 Alkaline Phosphatase 102 Total Protein 7.4 Albumin 4.5 Globulin 2.9 Albumin/Globulin Ratio 1.6 Lipase 30 Urine Color YELLOW Urine Clarity CLOUDY Urine pH 6.5 Ur Specific [place] 1.015 Urine Protein NEGATIVE Urine Glucose (UA) NEGATIVE Urine Ketones NEGATIVE Urine Occult Blood NEGATIVE Urine Nitrite POSITIVE H Urine Bilirubin NEGATIVE Urine Urobilinogen 0.2 (NORMAL) Ur Leukocyte Esterase MODERATE H Urine RBC 0-5 Urine WBC 11-25 H Ur Epithelial Cells FEW Transitional Ur Squamous Epith Cells FEW Squamous Urine Bacteria Many H Ur Microscopic Review INDICATED Urine Culture Comments INDICATED Rads (name of study) abd US: Relevant Findings:: Final report received (Small stones and sludge in the gallbladder with wall thickening consistent with cholecystitis. Reported positive Lizarraga sign.) PD Medical Decision Making ED course Complexity details: reviewed results (Normal white count. LFTs and lipase are normal as is alk phos. No signs of biliary obstruction based on that. Ultrasound showing cholecystitis. Patient is needing repeated doses of pain medicine and antiemetics.), considered differential (Onset and persistence of right upper quadrant pain and tenderness associated with nausea and vomiting. Area is most consistent with likely gallbladder. Will assess initially with ultrasound and moved to CT if needed. Will also obtain labs.), d/w patient and d/w legal consultant (Dr. Leach for surgery who will come and see the patient) ED course: Per the patient and her caregiver (the patient has had prior traumatic brain injury and does have some mild thought process problems but still makes her own decision making), the patient has been having intermittent and fairly regular right upper quadrant pains after eating for the last couple of months and now very consistently for 5 days with continual pain and repetitive nausea and vomiting. It does seem gallbladder related and her ultrasound is consistent with cholecystitis. The patient is in agreement that she would like to just have her gallbladder removed. I talked with Dr. Leach who is on for surgery who will come and see the patient and write orders to place her in the hospital and do surgery tomorrow. Discharge Plan Discharge Patient Disposition: ED Place in Observation Condition: Stable Clinical Impression: Acute cholecystitis, Intractable right upper quadrant abdominal pain, Nausea and vomiting Prescriptions: No Action topiramate 25 mg tablet buspirone 10 mg tablet 10 mg PO BID losartan 50 mg tablet 50 mg PO DAILY Print Language: [place] Stand Alone Forms: PCP List
[2024-04-11] MEDS: ONDANSETRON 4 MG/2 ML VIAL IVP STA (15:58)
[2024-04-11] MEDS: HYDROmorphone 1 MG/ML CARPUJECT IVP STA ×2 (15:58→17:05)
[2024-04-11] MEDS: KETOROLAC 15 MG/ML VIAL IVP STA (15:59)
[2024-04-11 16:17] LABS: BILIRUBIN,URINE NEGATIVE (NEGATIVE); GLUCOSE, URINE (UA) NEGATIVE (NEGATIVE); KETONES,URINE (UA) NEGATIVE (NEGATIVE); LEUKOCYTE ESTERASE, URINE MODERATE (NEGATIVE); NITRITE,URINE POSITIVE (NEGATIVE); OCCULT BLOOD,URINE NEGATIVE (NEGATIVE); PH,URINE 6.5 PH (5.0-7.5); PROTEIN,URINE NEGATIVE (NEGATIVE); UROBILINOGEN,URINE 0.2 (NORMAL) E.U./dL (NORMAL)
[2024-04-11 16:22] LABS: CLARITY,URINE CLOUDY (CLEAR)
[2024-04-11 16:23] LABS: BASOPHILS # (AUTO) 0.1 10^3/uL (0.0-0.1); BASOPHILS % (AUTO) 0.7 %; EOSINOPHILS # (AUTO) 0.3 10^3/uL (0.0-0.7); EOSINOPHILS % (AUTO) 2.9 %; HCT - HEMATOCRIT 39.4 % (37.0-47.0); HGB - HEMOGLOBIN 13.6 g/dL (12.0-16.0); LYMPHOCYTES # (AUTO) 2.2 10^3/uL (1.5-3.5); MEAN CORPUSCULAR HEMOGLOBIN 30.4 pg (27.0-31.0); MEAN CORPUSCULAR HGB CONC 34.5 g/dL (32.0-36.0); MEAN CORPUSCULAR VOLUME 88.1 fL (81.0-99.0); MEAN PLATELET VOLUME 10.8 fL (7.9-10.8); MONOCYTES # (AUTO) 0.6 10^3/uL (0.0-1.0); MONOCYTES % (AUTO) 7.3 %; NEUTROPHILS # (AUTO) 5.4 10^3/uL (1.5-6.6); NEUTROPHILS % (AUTO) 62.9 %; PLT - PLATELET COUNT 339 10^3/uL (130-450); RED BLOOD COUNT 4.47 10^6/uL (4.20-5.40); RED CELL DISTRIBUTION WIDTH 12.3 % (12.0-15.0); WHITE BLOOD COUNT 8.6 x10^3/uL (4.8-10.8)
[2024-04-11 16:29] LABS: RBC,URINE 0-5 /HPF (0-5); SQUAMOUS EPITHELIAL CELL,UR FEW Squamous (<= Few)
[2024-04-11 16:30] LABS: BACTERIA,URINE Many /HPF (None Seen); EPITHELIAL CELLS,UR FEW Transitional /HPF (<= Few)
--- NOTE | 2024-04-11 16:47 | Ultrasound Report ---
PROCEDURE: US Abdomen Limited INDICATIONS: RUQ pain since TECHNIQUE: Real-time focused scanning was performed of the abdomen, with image documentation. COMPARISONS: None. FINDINGS: Liver: Liver is normal in size. Increased liver parenchymal echotexture is seen. No discrete hepatic lesion. Gallbladder: Sludge material is seen within gallbladder lumen. Borderline gallbladder wall thickening measures 3.2 mm in thickness. No pericholecystic fluid. Positive sonographic Lizarraga's sign is noted. Biliary ducts: Intrahepatic bile ducts are non-dilated. Extrahepatic bile duct caliber measures 5.3 mm. Normal is 6-7 mm or less in diameter, or 10 mm or less post-cholecystectomy. Pancreas: Visualized portions of the pancreas are sonographically normal. Right kidney: Normal in size and echotexture. Right kidney measures 10.8 cm long. No hydronephrosis or nephrolithiasis. No solid masses. No complex renal cystic lesions which require follow-up. IVC: Intrahepatic inferior vena cava is patent. Miscellaneous: No free abdominal fluid. IMPRESSION: 1. Sludge material and possible small stones in dependent portion of gallbladder lumen. Mild gallblad lu wall thickening and positive sonographic Lizarraga's sign concerning for acute cholecystitis. 2. No biliary ductal dilatation. 3. Hepatic steatosis, no discrete hepatic lesion. Reviewed by: Jostin Padron MD on 04/11/2024 4:46 PM PST Approved by: Jostin Padron MD on 04/11/2024 4:46 PM PST Station ID: [id number]
[2024-04-11 16:52] LABS: ALBUMIN 4.5 g/dL (3.2-5.5); ALBUMIN/GLOBULIN RATIO 1.6 (1.0-2.2); BILIRUBIN,TOTAL 0.6 mg/dL (0.2-1.0); POTASSIUM 3.5 mmol/L (3.5-4.5); TOTAL PROTEIN 7.4 g/dL (6.4-8.9)
[2024-04-11] MEDS: cefTRIAXone 1 GM VIAL IVP STA (17:56)
[2024-04-11] MEDS ORDERED: ONDANSETRON 4 MG/2 ML VIAL IVP PRN (18:51)
[2024-04-11] MEDS ORDERED: SODIUM CHLORIDE FLUSH 0.9% 10 ML SYRINGE IVP PRN (18:51)
--- NOTE | 2024-04-11 19:02 | CONSULTATION NOTE ---
Chief Complaint Chief Complaint Chief Complaint: ruq pain and nausea x 1 week. not improving History of Present Illness Admitted From Admitted From:: ed History Obtained From Records Reviewed: yes History obtained from: pt Exam Limitations: none History of Present Illness HPI Comment/Other: intermittent ruq pain about monthly for a year. this time not improving. no signs or symptoms of a cbd stone. Meds/Allgy Home Medications Ambulatory Orders Medication Instructions Recorded Confirmed buspirone 10 mg tablet 10 mg PO BID 04/11/24 04/11/24 losartan 50 mg tablet 50 mg PO DAILY 04/11/24 04/11/24 topiramate 25 mg tablet mg 04/11/24 Allergies Allergies Allergy/AdvReac Type Severity Reaction Status Date / Time bee venom protein (honey bee) Allergy Hives Verified 04/11/24 15:20 Penicillins Allergy Unknown Verified 04/11/24 15:20 shellfish derived Allergy Edema Verified 04/11/24 15:20 [facility] Medical History Medical History (Updated 04/11/24 @ 17:33 by Tyler Gamez MD) History of hypertension Social History Social History Smoking Status: Never smoker Relationship: Do you feel safe in your home environment?: Yes Suffered physical, verbal, emotional, or financial abuse?: No History of Abuse: No POLST Patient has POLST: No Results Lab Results 04/11/24 16:00 04/11/24 16:00 Other Lab Results: Lab Results x24hrs 04/11/24 04/11/24 Range/Units 16:00 15:50 WBC 8.6 (4.8-10.8) x10^3/uL RBC 4.47 (4.20-5.40) 10^6/uL Hgb 13.6 (12.0-16.0) g/dL Hct 39.4 (37.0-47.0) % MCV 88.1 (81.0-99.0) fL MCH 30.4 (27.0-31.0) pg MCHC 34.5 (32.0-36.0) g/dL RDW 12.3 (12.0-15.0) % Plt Count 339 (130-450) 10^3/uL MPV 10.8 (7.9-10.8) fL Neut # (Auto) 5.4 (1.5-6.6) 10^3/uL Lymph # (Auto) 2.2 (1.5-3.5) 10^3/uL [place] # (Auto) 0.6 (0.0-1.0) 10^3/uL Eos # (Auto) 0.3 (0.0-0.7) 10^3/uL Baso # (Auto) 0.1 (0.0-0.1) 10^3/uL Absolute Nucleated RBC 0.00 x10^3/uL Nucleated RBC % 0.0 /100WBC Sodium 138 (135-145) mmol/L Potassium 3.5 (3.5-4.5) mmol/L Chloride 98 L (101-111) mmol/L Carbon Dioxide 31 (21-32) mmol/L Anion Gap 9.0 (6-13) BUN 12 (6-20) mg/dL Creatinine 1.0 (0.6-1.3) mg/dL Estimated GFR (MDRD) 57 L (>89) Glucose 93 (74-104) mg/dL Calcium 10.0 (8.5-10.3) mg/dL Magnesium 2.0 (1.7-2.3) mg/dL Total Bilirubin 0.6 (0.2-1.0) mg/dL AST 22 (10-42) IU/L ALT 29 (10-60) IU/L Alkaline Phosphatase 102 (42-121) IU/L Total Protein 7.4 (6.4-8.9) g/dL Albumin 4.5 (3.2-5.5) g/dL Globulin 2.9 (2.1-4.2) g/dL Albumin/Globulin Ratio 1.6 (1.0-2.2) Lipase 30 (11-82) U/L Urine Color YELLOW Urine Clarity CLOUDY (CLEAR) Urine pH 6.5 (5.0-7.5) PH Ur Specific [place] 1.015 (1.002-1.030) Urine Protein NEGATIVE (NEGATIVE) mg/dL Urine Glucose (UA) NEGATIVE (NEGATIVE) mg/dL Urine Ketones NEGATIVE (NEGATIVE) mg/dL Urine Occult Blood NEGATIVE (NEGATIVE) Urine Nitrite POSITIVE H (NEGATIVE) Urine Bilirubin NEGATIVE (NEGATIVE) Urine Urobilinogen 0.2 (NORMAL) (NORMAL) E.U./dL Ur Leukocyte Esterase MODERATE H (NEGATIVE) Urine RBC 0-5 (0-5) /HPF Urine WBC 11-25 H (0-5) /HPF Ur Epithelial Cells FEW Transitional (<= Few) /HPF Ur Squamous Epith Cells FEW Squamous (<= Few) Urine Bacteria Many H (None Seen) /HPF Ur Microscopic Review INDICATED Urine Culture Comments INDICATED Review of Systems Status of ROS: 10 or more systems reviewed and unremarkable except as noted in history and below Exam Constitutional normal general appearance and no apparent distress HENMT normocephalic and head/scalp atraumatic Eyes PERRL, EOMs intact bilaterally and no scleral icterus Respiratory normal respiratory effort Cardiovascular normal heart rate noted and regular rhythm noted Gastrointestinal ruq tenderness Neurology speech normal and GCS 15 Psychiatry oriented x3, thought process normal, cooperative, affect normal and memory normal Conclusion/Plan Problem List (1) Acute cholecystitis: Plan: kamila yue. parq held and consent obtained Lab Results 04/11/24 16:00 04/11/24 16:00
[2024-04-11] MEDS: cefTRIAXone 1 GM in SODIUM CHLORIDE 0.9% MINIBAG 100 ML IV ONE ×2 (19:14→22:05)
[2024-04-11] MEDS: LACTATED RINGERS 1,000 ML IV SCH (19:22)
[2024-04-11] MEDS: HYDROmorphone 0.5 MG/0.5 ML SYRINGE IVP PRN (19:35)
[2024-04-11] MEDS: busPIRone 5 MG TABLET PO SCH (21:21)
[2024-04-11] MEDS: ZOLPIDEM 5 MG TABLET PO PRN (21:24)
[2024-04-12] MEDS: ACETAMINOPHEN 325 MG TABLET PO PRN (01:01)
[2024-04-12] MEDS: SODIUM CHLORIDE FLUSH 0.9% 10 ML SYRINGE IVP SCH (01:02)
[2024-04-12] MEDS: ONDANSETRON ODT 4 MG TABLET TL PRN (01:02)
[2024-04-12] MEDS: oxyCODONE 5 MG TABLET PO PRN (07:50)
[2024-04-12] MEDS ORDERED: cefTRIAXone 1 GM in SODIUM CHLORIDE 0.9% MINIBAG 100 ML IV SCH (08:00)
--- NOTE | 2024-04-12 09:38 | PROVIDER PROGRESS NOTE ---
Subjective Subjective Pt reports feeling: No change Subjective: still with ruq pain. Current Medications Current Medications Current Medications: Current Medications Generic Name Dose Route Start Last Admin Trade Name Freq PRN Reason Stop Dose Admin Acetaminophen 650 mg 04/11/24 18:51 04/12/24 01:01 Acetaminophen 325 Mg Tablet PO 650 mg Q4HR PRN Administration Pain 1 to 4, or Fever Buspirone HCl 10 mg 04/11/24 21:00 04/11/24 21:21 Buspirone 5 Mg Tablet PO 10 mg BID NICK Administration Hydromorphone HCl 0.5 mg 04/11/24 18:51 04/12/24 00:59 Hydromorphone 0.5 Mg/0.5 Ml Syringe IVP 0.5 mg Q2H PRN Administration Pain 8 to 10 Lactated Ringer's 1,000 mls @ 100 mls/hr 04/11/24 19:00 04/12/24 05:28 Lr IV 100 mls/hr .Q10H NICK Administration Ondansetron HCl 4 mg 04/11/24 18:51 04/12/24 01:02 Ondansetron Odt 4 Mg Tablet TL 4 mg Q6HR PRN Administration Nausea / Vomiting Ondansetron HCl 4 mg 04/11/24 18:51 Ondansetron 4 Mg/2 Ml Vial IVP Q6HR PRN Nausea / Vomiting Oxycodone HCl 5 mg 04/11/24 18:51 04/12/24 07:50 Oxycodone 5 Mg Tablet PO 5 mg Q4HR PRN Administration Pain 5 to 7 Sodium Chloride 10 ml 04/11/24 18:51 Sodium Chloride Flush 0.9% 10 Ml Syringe IVP PRN PRN NEEDED PER PROVIDER ORDERS Sodium Chloride 10 ml 04/12/24 01:00 04/12/24 01:02 Sodium Chloride Flush 0.9% 10 Ml Syringe IVP 10 ml 0100,0900,1700 NICK Administration Zolpidem Tartrate 5 mg 04/11/24 18:51 04/11/24 21:24 Zolpidem 5 Mg Tablet PO 5 mg QPM PRN Administration Insomnia Objective Vital Signs/Intake & Output Reviewed Vital Signs: Yes Vital Signs: Vital Signs x48h Temp Pulse Pulse Resp BP Pulse Ox 04/12/24 07:46 36.5 C 58 L 16 127/68 96 04/12/24 05:00 36.6 C 60 18 116/60 95 Intake & Output: Intake & Output 04/10/24 04/11/24 04/12/24 04/13/24 05:59 05:59 05:59 05:59 Intake Total 1300 / 1300 Balance 1300 / 1300 Weight (kg) 97.522 kg Objective General Appearance: positive No acute distress and Alert Eyes Bilateral: positive PERRL, EOMI and No scleral icterus Respiratory: positive No respiratory distress Abdomen: positive No distention Neurologic/Psychiatric: positive Oriented x3 Lab Results 04/11/24 16:00 04/11/24 16:00 Other Labs: Lab Results x24hrs 04/11/24 04/11/24 Range/Units 16:00 15:50 WBC 8.6 (4.8-10.8) x10^3/uL RBC 4.47 (4.20-5.40) 10^6/uL Hgb 13.6 (12.0-16.0) g/dL Hct 39.4 (37.0-47.0) % MCV 88.1 (81.0-99.0) fL MCH 30.4 (27.0-31.0) pg MCHC 34.5 (32.0-36.0) g/dL RDW 12.3 (12.0-15.0) % Plt Count 339 (130-450) 10^3/uL MPV 10.8 (7.9-10.8) fL Neut # (Auto) 5.4 (1.5-6.6) 10^3/uL Lymph # (Auto) 2.2 (1.5-3.5) 10^3/uL [place] # (Auto) 0.6 (0.0-1.0) 10^3/uL Eos # (Auto) 0.3 (0.0-0.7) 10^3/uL Baso # (Auto) 0.1 (0.0-0.1) 10^3/uL Absolute Nucleated RBC 0.00 x10^3/uL Nucleated RBC % 0.0 /100WBC Sodium 138 (135-145) mmol/L Potassium 3.5 (3.5-4.5) mmol/L Chloride 98 L (101-111) mmol/L Carbon Dioxide 31 (21-32) mmol/L Anion Gap 9.0 (6-13) BUN 12 (6-20) mg/dL Creatinine 1.0 (0.6-1.3) mg/dL Estimated GFR (MDRD) 57 L (>89) Glucose 93 (74-104) mg/dL Calcium 10.0 (8.5-10.3) mg/dL Magnesium 2.0 (1.7-2.3) mg/dL Total Bilirubin 0.6 (0.2-1.0) mg/dL AST 22 (10-42) IU/L ALT 29 (10-60) IU/L Alkaline Phosphatase 102 (42-121) IU/L Total Protein 7.4 (6.4-8.9) g/dL Albumin 4.5 (3.2-5.5) g/dL Globulin 2.9 (2.1-4.2) g/dL Albumin/Globulin Ratio 1.6 (1.0-2.2) Lipase 30 (11-82) U/L Urine Color YELLOW Urine Clarity CLOUDY (CLEAR) Urine pH 6.5 (5.0-7.5) PH Ur Specific [place] 1.015 (1.002-1.030) Urine Protein NEGATIVE (NEGATIVE) mg/dL Urine Glucose (UA) NEGATIVE (NEGATIVE) mg/dL Urine Ketones NEGATIVE (NEGATIVE) mg/dL Urine Occult Blood NEGATIVE (NEGATIVE) Urine Nitrite POSITIVE H (NEGATIVE) Urine Bilirubin NEGATIVE (NEGATIVE) Urine Urobilinogen 0.2 (NORMAL) (NORMAL) E.U./dL Ur Leukocyte Esterase MODERATE H (NEGATIVE) Urine RBC 0-5 (0-5) /HPF Urine WBC 11-25 H (0-5) /HPF Ur Epithelial Cells FEW Transitional (<= Few) /HPF Ur Squamous Epith Cells FEW Squamous (<= Few) Urine Bacteria Many H (None Seen) /HPF Ur Microscopic Review INDICATED Urine Culture Comments INDICATED Assessment/Plan Problem List (1) Acute cholecystitis: Impression: lap yue today. parq held and consent obtained
[2024-04-12] MEDS ORDERED: fentaNYL 100 MCG/2 ML VIAL ONE ×2 (11:55→13:14)
[2024-04-12] MEDS ORDERED: ROCURONIUM 50 MG/5 ML VIAL ONE (11:55)
[2024-04-12] MEDS ORDERED: LIDOCAINE-PF 2% 10 ML AMP SUBQ ONE (11:55)
[2024-04-12] MEDS ORDERED: MIDAZOLAM 2 MG/2 ML VIAL ONE (11:55)
[2024-04-12] MEDS ORDERED: PROPOFOL 200 MG/20 ML VIAL IVP ONE (11:55)
--- NOTE | 2024-04-12 11:58 | ANESTHESIA PROCEDURE NOTE ---
Pre-Anesthesia VS, & Labs Diagnosis Surgical Diagnosis:: cholecystitis Procedure Procedure: Laparoscopic cholecystectomy Vitals Vital Signs: Temp Pulse Resp BP Pulse Ox O2 Flow Rate 36.5 C 58 L 16 127/68 96 0 04/12/24 07:46 04/12/24 07:46 04/12/24 07:46 04/12/24 07:46 04/12/24 07:46 04/11/24 20:34 NPO NPO: >8 hours Is Patient ?: No Lab Results Current Lab Results: Laboratory Tests 04/11/24 16:00: WBC 8.6, RBC 4.47, Hgb 13.6, Hct 39.4, MCV 88.1, MCH 30.4, MCHC 34.5, RDW 12.3, Plt Count 339, MPV 10.8, Neut # (Auto) 5.4, Lymph # (Auto) 2.2, [place] # (Auto) 0.6, Eos # (Auto) 0.3, Baso # (Auto) 0.1, Absolute Nucleated RBC 0.00, Nucleated RBC % 0.0, Sodium 138, Potassium 3.5, Chloride 98 L, Carbon Dioxide 31, Anion Gap 9.0, BUN 12, Creatinine 1.0, Estimated GFR (MDRD) 57 L, Glucose 93, Calcium 10.0, Magnesium 2.0, Total Bilirubin 0.6, AST 22, ALT 29, Alkaline Phosphatase 102, Total Protein 7.4, Albumin 4.5, Globulin 2.9, Albumin/Globulin Ratio 1.6, Lipase 30 Lab results reviewed: Yes 04/11/24 16:00 04/11/24 16:00 Meds/Allgy Home Medications Ambulatory Orders Medication Instructions Recorded Confirmed buspirone 10 mg tablet 10 mg PO BID 04/11/24 04/11/24 losartan 50 mg tablet 50 mg PO DAILY 04/11/24 04/11/24 topiramate 25 mg tablet 25 mg PO DAILY 04/11/24 04/12/24 duloxetine 20 mg capsule,delayed 20 mg PO BID 04/12/24 04/12/24 release famotidine 20 mg tablet 20 mg PO BID 04/12/24 04/12/24 meloxicam 15 mg tablet 15 mg PO DAILY 04/12/24 04/12/24 trazodone 50 mg tablet 50 mg PO QPM 04/12/24 04/12/24 Allergies Allergies Allergy/AdvReac Type Severity Reaction Status Date / Time bee venom protein (honey bee) Allergy Hives Verified 04/11/24 15:20 Penicillins Allergy Unknown Verified 04/11/24 15:20 shellfish derived Allergy Edema Verified 04/11/24 15:20 [facility] Medical History Medical History (Updated 04/11/24 @ 17:33 by Tyler Gamez MD) History of hypertension Social History Social History Smoking Status: Former smoker Relationship: Level: Assisted Home Mobility Equipment: Cane Do you feel safe in your home environment?: Yes Suffered physical, verbal, emotional, or financial abuse?: No History of Abuse: No Substance Use: cannabis (any form) POLST Patient has POLST: No Anesthesia Exam (Expanded) Exam General: Alert, Oriented x3 and Cooperative Dental: WNL Mouth Openin Fingerbreadth Neck Mobility: Normal Mallampati classification: III Thyromental Distance: 4-6 cm Respiratory: Lungs clear and Normal breath sounds Cardiovascular: Regular rate Abdomen: Soft Neurological: Normal gait and Normal speech Mental/Cognitive Status: Alert/Oriented X3 and Normal for patient Plan Problem List (1) Acute cholecystitis: Plan: lap yue. parq held and consent obtained (2) History of hypertension: Plan Anesthesia Type: General Consent for Procedure(s) Verified and Reviewed: Yes Code Status: Attempt Resuscitation ASA Classification ASA classification: 2-Mild systemic disease Is this case an emergency?: No
[2024-04-12] MEDS ORDERED: ePHEDrine 50 MG/ML VIAL IVP PRN (12:05)
[2024-04-12] MEDS ORDERED: ATROPINE ABBOJECT 1 MG/10 ML SYRINGE IVP PRN (12:05)
[2024-04-12] MEDS ORDERED: HYDROmorphone 0.5 MG/0.5 ML SYRINGE IVP PRN ×2 (12:05→14:26)
[2024-04-12] MEDS ORDERED: fentaNYL 100 MCG/2 ML VIAL IVP PRN (12:05)
[2024-04-12] MEDS ORDERED: NALOXONE 0.4 MG/ML VIAL IVP PRN (12:05)
[2024-04-12] MEDS ORDERED: MORPHINE 2 MG/ML CARPUJECT IVP PRN (12:05)
[2024-04-12] MEDS ORDERED: ONDANSETRON 4 MG/2 ML VIAL IVP PRN ×2 (12:05→14:26)
[2024-04-12] MEDS ORDERED: METOCLOPRAMIDE 10 MG/2 ML VIAL IVP PRN (12:05)
[2024-04-12] MEDS ORDERED: BUPIVACAINE 0.25% PF 30 ML VIAL ONE (12:14)
[2024-04-12] MEDS ORDERED: LIDOCAINE 1%-EPI 1:100000 20 ML MDV ONE (12:14)
[2024-04-12] MEDS ORDERED: GLYCOPYRROLATE 1 MG/5 ML VIAL ONE (12:30)
[2024-04-12] MEDS ORDERED: DEXAMETHASONE 4 MG/ML VIAL ONE (12:46)
[2024-04-12] MEDS ORDERED: ONDANSETRON 4 MG/2 ML VIAL ONE (12:46)
[2024-04-12] MEDS ORDERED: SUGAMMADEX 200 MG/2 ML VIAL IVP ONE (12:50)
[2024-04-12] MEDS ORDERED: ceFAZolin 1 GM VIAL ONE (12:52)
[2024-04-12] MEDS ORDERED: oxyCODONE 5 MG TABLET PO PRN (14:26)
[2024-04-12] MEDS ORDERED: ACETAMINOPHEN 325 MG TABLET PO PRN (14:26)
--- NOTE | 2024-04-12 14:40 | OPERATIVE REPORT ---
Operative Report General Admit Date: 04/11/24 Procedure Data: Operation Date: 04/12/24 11:15 Proposed Procedures p Laparoscopic Cholecystectomy(Not Applicable) - Stiven Leach MD Actual Procedures p Laparoscopic Cholecystectomy(Not Applicable) - Stiven Leach MD Pre-Op Diagnosis: CHOLECYSTITITS Anesthesia Type General Case Staff Anesthesia Provider: Vernon Babcock Case Times Procedure Start: 04/12/24 12:53 Procedure End: 04/12/24 14:18 Time out: 04/12/24 12:52 Pre-Op Diagnosis: cholecystitis Post Op Diagnosis: chronic cholecystitis Procedure Note Pathology: gallbladder Indications: painful gallbladder/ not improving Findings: distended gallbladder adherent to common hepatic duct and very short cystic duct and cystic artery. fatty liver changes Complications: none Other Other Information/Narrative: The patient was prepped identified brought to the operating room and placed in supine position. She already had sequential compression devices on. General endotracheal anesthesia was induced. She was prepped and draped in a sterile fashion. Preoperative antibiotics were given. Local anesthetic was given to incision areas. An incision measuring approximately 2 cm was made approximately 4 cm cephalad and 4 cm right lateral of the umbilicus. Dissection proceeded down to the fascia. The fascia was incised lifted upwards and Veress needle placed. An 11 mm Visiport trocar with 30 degree scope was placed. There was no evidence of injury from Veress needle or trocar placement. Under direct vision two 5 mm trocars were placed in the right upper quadrant and an 11 mm trocar was placed in the epigastrium. Gallbladder was retracted anterior. Adherent omentum was taken down. A few adhesions from the right lobe of the liver to the abdominal wall were taken down with Metzenbaum scissors. Gallbladder was retracted cephalad and anterior. Lateral attachments were partially taken down to further mobilize the gallbladder away from the common bile duct and the common hepatic duct. With careful dissection and minimal use of cautery the infundibulum of the gallbladder was mobilized away from the common hepatic and common bile duct. Using a Kitner the gallbladder was further mobilized away from the common duct and from the liver bed. She had a very short and very small cystic artery and cystic duct. A bare cystic plate area was carefully d eveloped. The cystic duct and cystic artery were both clipped at the gallbladder and x 2 slightly proximal and sharply divided. Gallbladder was densely adherent to her soft fatty liver. There was some spillage of bile however no spillage of stone material. The gallbladder was placed in Endo Catch bag and brought out through the epigastric trocar site. The abdomen was thoroughly irrigated. Hemostasis was assured. Clips were secure. Trocars were removed under direct vision and hemostasis assured. Fascia at the epigastric and periumbilical trocar site were previously closed with a [id number] 0 Vicryl suture. Skin was closed with buried interrupted 4-0 Monocryl. There were no apparent complications. Dressings were applied. She tolerated the procedure well was awakened and brought to recovery in good condition.
--- NOTE | 2024-04-12 15:15 | ANESTHESIA POST OP EVALUATION ---
Anesthesia Post Eval Post Anesthesia Eval Vitals: Last Vital Signs Temp 36.4 C L 04/12/24 14:56 Pulse 92 H 04/12/24 14:56 Resp 14 04/12/24 14:56 BP 107/71 04/12/24 14:56 Pulse Ox 93 04/12/24 14:56 O2 Flow Rate 0 04/11/24 20:34 CV Function Including HR & BP: Stable Pain Control: Satisfactory Nausea & Vomiting: Negative Mental Status: Baseline Respiratory Status: Airway Patent Hydration Status: Satisfactory Anesthesia Complications: None
[2024-04-12] MEDS: LACTATED RINGERS 1,000 ML IV SCH (17:13)
--- NOTE | 2024-04-12 17:55 | PHARMACY PROGRESS NOTE ---
Best Possible Medication History Admit Date and Time: 04/11/2420000509 Home Medications Medication Instructions Recorded Confirmed Type buspirone 10 mg tablet 10 mg PO BID 04/11/24 04/11/24 History losartan 50 mg tablet 50 mg PO DAILY 04/11/24 04/11/24 History topiramate 25 mg tablet 25 mg PO DAILY 04/11/24 04/12/24 History atorvastatin 20 mg tablet (Lipitor) 20 mg PO QPM 04/12/24 04/12/24 History duloxetine 20 mg capsule,delayed 20 mg PO BID 04/12/24 04/12/24 History release famotidine 20 mg tablet 20 mg PO BID 04/12/24 04/12/24 History gabapentin 300 mg capsule 300 mg PO BID 04/12/24 04/12/24 History meloxicam 15 mg tablet 15 mg PO DAILY 04/12/24 04/12/24 History metformin 500 mg tablet 500 mg PO TID 04/12/24 04/12/24 History olanzapine 5 mg tablet 10 mg PO QPM 04/12/24 04/12/24 History oxybutynin chloride 5 mg tablet 5 mg PO BID 04/12/24 04/12/24 History oxycodone-acetaminophen 5 mg-325 1 tab PO Q4-6H PRN Pain #25 tabs 04/12/24 Rx mg tablet potassium chloride 10 mEq 10 meq PO DAILY 04/12/24 04/12/24 History tablet,extended release (Klor-Con) tizanidine 2 mg tablet 2 mg PO Q8H PRN spasms 04/12/24 04/12/24 History trazodone 50 mg tablet 50 mg PO QPM 04/12/24 04/12/24 History Processed by: Nursing Medications reviewed in ED?: No Medication History completed: Yes Patient Interview: Completed Secondary Source(s): Physician records [facility] Statement: As the person ultimately responsible for medication therapy, providers are able to order a medication from an existing home medication list in [facility] via the "Reconcile Routine" prior to Confirmation of that medication by product support manager. Such practice is discouraged except when the physician, in their clinical judgment, deems that a medical need exists for a medication without regard to previous use.
[2024-04-12 18:38] VITALS: BP 153/74; TEMP 97.9; O2SAT 95
[2024-04-12] MEDS ORDERED: busPIRone 5 MG TABLET PO SCH (21:00)
--- NOTE | 2024-04-17 07:20 | PROVIDER PROGRESS NOTE ---
Subjective Prog Note Date Prog Note Date: 04/12/24 Subjective Subjective: pt went home a few hours after surgery without being seen an additional time Objective Lab Results 04/11/24 16:00 04/11/24 16:00 Assessment/Plan Problem List (1) Acute cholecystitis: Impression: she was doing well a few hours after cholecystectomy and went home without being seen an additional time (2) History of hypertension:
== END 2024-04-12 19:45 | disposition home or self-care (01) ==
LOC: ED 15:04 → MS2 15:04
PROVIDERS: ADMIT Surgery; ATTEND Surgery
DX: K80.10 Calculus of gallbladder with chronic cholecystitis without obstruction; I10 Essential (primary) hypertension